=== PATIENT | female | born 1955 | race Caucasian/White ===

== ENCOUNTER → 2024-03-18 08:01 | Outpatient (REF) | payer OTHER, SELFPAY | LOC: WDC 08:01 | PROVIDERS: ATTENDING PHYSICIAN Obstetrics & Gynecology Gynecology; FAMILY PHYSICIAN Family Medicine | DX: Z12.31 Encounter for screening mammogram for malignant neoplasm of breast (principal) | CPT/HCPCS: 77063; 77067 ==

== ENCOUNTER → 2024-05-19 06:33 | Day surgery (SDC) | payer OTHER, SELFPAY | LOC: GI 06:33 | PROVIDERS: ATTENDING PHYSICIAN Internal Medicine | DX: Z12.11 Encounter for screening for malignant neoplasm of colon (principal); K64.8 Other hemorrhoids; K57.30 Diverticulosis of large intestine without perforation or abscess without bleeding; D12.0 Benign neoplasm of cecum | CPT/HCPCS: 45385; 45380; 88305 ==

== ENCOUNTER → 2025-01-28 07:47 | Outpatient (REF) | payer OTHER, SELFPAY | LOC: RAD 07:47 | PROVIDERS: ATTENDING PHYSICIAN Physician Assistant Medical | DX: R14.0 Abdominal distension (gaseous) (principal); R19.4 Change in bowel habit | CPT/HCPCS: 74177; Q9967 ==

== ENCOUNTER → 2025-03-01 09:41 | Outpatient (REF) | payer OTHER, SELFPAY | LOC: EMG 09:41 | PROVIDERS: ATTENDING PHYSICIAN Student in an Organized Health Care Education/Training Program; FAMILY PHYSICIAN Family Medicine | DX: R20.0 Anesthesia of skin (principal) | CPT/HCPCS: 95886; 95909 ==

== ENCOUNTER → 2025-03-20 07:12 | Outpatient (REF) | payer OTHER, SELFPAY | LOC: WDC 07:12 | PROVIDERS: ATTENDING PHYSICIAN Obstetrics & Gynecology Gynecology; FAMILY PHYSICIAN Family Medicine | DX: Z12.31 Encounter for screening mammogram for malignant neoplasm of breast (principal) | CPT/HCPCS: 77063; 77067 ==

== ENCOUNTER → 2025-03-22 12:43 | Outpatient (REF) | payer OTHER, SELFPAY | LOC: RAD 12:43 | PROVIDERS: ATTENDING PHYSICIAN Obstetrics & Gynecology Gynecology; FAMILY PHYSICIAN Family Medicine | DX: M81.0 Age-related osteoporosis without current pathological fracture (principal) | CPT/HCPCS: 77080 ==

== ENCOUNTER 2025-07-21 22:43 | Emergency (ER) | payer OTHER, SELFPAY ==
[2025-07-21 22:46] VITALS: BP 107/59
[2025-07-21 23:05] LABS: Hematocrit 39.0 % (37.0-47.0); Hemoglobin 13.4 g/dL (12.0-16.0); Mean Corp Hgb Conc. 34.4 g/dL (33.0-37.0); Mean Corpuscular Volume 90.3 fL (81.0-99.0); Nucleated Red Blood Cells % 0 %; Platelet Count 249 10^3/uL (130-400); Red Cell Dist. Width 13.8 % (11.5-14.5)
[2025-07-21 23:28] LABS: ALT (SGPT) 29 U/L (0-35); AST (SGOT) 26 U/L (14-36); Albumin 4.4 g/dl (3.5-5.0); Alkaline Phosphatase 60 U/L (38-126); Blood Urea Nitrogen 21 mg/dl (7-17); Calcium 9.7 mg/dl (8.4-10.2); Carbon Dioxide 31 mmol/L (22-30); Chloride 101 mmol/L (98-107); Glucose 118 mg/dl (70-99); Potassium 4.7 mmol/L (3.5-5.1); Sodium 135 mmol/L (135-145); Total Protein 6.7 g/dl (6.3-8.2); eGFR > 60.00
[2025-07-21 23:40] LABS: Troponin I < 0.012 ng/ml
[2025-07-21 23:53] VITALS: BP 101/50
[2025-07-21 23:54] VITALS: BMI 21.0
[2025-07-22] VITALS: BP 105/63
[2025-07-22] MEDS: MAALOX 30 ML PO
[2025-07-22 01:00] VITALS: BP 93/52
[2025-07-22 02:00] VITALS: BP 94/54
[2025-07-22 02:46] LABS: Troponin I < 0.012 ng/ml
[2025-07-22 03:00] VITALS: BP 101/70
--- NOTE | 2025-07-22 03:17 | ED.GENMED ---
History of Present Illness
General
Chief Complaint: Chest Pain
Source: patient and spouse
Time Seen by Provider: 07/21/25 23:35
History of Present Illness
History of Present Illness:
Note:
CHIEF COMPLAINT(S)
Fatigue, chest pressure, and episodes of sweating.
HISTORY OF PRESENT ILLNESS
The patient is a 70-year-old female presenting with complaints of extreme fatigue lasting for about a week. The patient reports that the fatigue began around the time she started taking Prednisone. She describes the fatigue as feeling and noted
episodes of sweating throughout the day. In the evening, she experienced a sensation of indigestion and pressure in the chest, which began around 9 PM. The chest pressure is described as a 'light' and not severe, but persistent. Since its onset, the
pressure has remained, sometimes improving slightly and sometimes worsening, but never fully resolving. She denies shortness of breath and does not recall experiencing a similar sensation in the past, except for an unrelated incident years ago where
no cardiac issues were found. She denies any recent fevers, tick bites, or other illnesses.
PAST MEDICAL AND SURGICAL HISTORY
The patient does not have a history of high blood pressure or diabetes. Her blood pressure is typically on the lower end of normal, recently recorded at 120/70 mmHg.
ADDITIONAL HISTORY OBTAINED FROM SOURCES OTHER THAN THE PATIENT
No additional sources were identified during the conversation.
CHRONIC MEDICAL CONDITIONS SIGNIFICANTLY AFFECTING CARE
The patient has postherpetic neuralgia following a shingles infection, for which she has tried various medications. Currently, she takes Prednisone but experiences significant fatigue.
PLAN
The medical plan includes obtaining a chest X-ray and monitoring the patient with serial cardiac enzyme testing and electrocardiograms to rule out myocardial infarction. The patients response to Maalox will be evaluated to determine if
gastrointestinal causes like steroid-induced gastritis due to Prednisone could be contributing to the symptoms. The patient will also be placed on a monitor for further observation.
DIFFERENTIAL DIAGNOSIS
The Differential Diagnosis includes, in no particular order and is not limited to:
1. Myocardial infarction
2. Angina pectoris
3. Gastroesophageal reflux disease (GERD)
4. Peptic ulcer disease
5. Pericarditis
6. Costochondritis
7. Atypical pneumonia
8. Anxiety/panic disorder
9. Lyme disease (considered due to fatigue and sweats)
10. Steroid-induced gastritis
PHYSICAL EXAM
General: Alert, no acute distress.
Skin: Warm, dry.
Head: Normocephalic, atraumatic.
Neck: Supple, trachea midline.
Eye, Ears, Nose, Mouth, and Throat: Oral mucosa moist.
Cardiovascular: Normal peripheral perfusion, Rate noted at 50 bpm on exam, No edema.
Respiratory: Respirations are non-labored, Lungs are clear.
Gastrointestinal: Abdomen nondistended, non-tender.
Back: Normal range of motion, Normal alignment.
Musculoskeletal: Normal range of motion, normal strength.
Neurological: Alert and oriented to person, place, time, and situation, No focal neurological deficit observed.
Psychiatric: Cooperative, appropriate mood & affect.
EKG
My independent EKG interpretation is:
- Time of EKG: Not specified
- Rhythm: Sinus bradycardia
- Heart Rate: 50 bpm
- Notable Intervals: Intervals otherwise normal
- [place]: Not specified
- Abnormalities Observed: Occasional premature atrial complexes
- ST Segment Changes: No
- T Wave Inversions: Not specified
Disposition:
SUMMARY OF ENCOUNTER
The patient is a 70-year-old female who presented to the emergency department with symptoms of extreme fatigue, chest pressure, and episodes of sweating. These symptoms began approximately one week ago when she started taking prednisone for
postherpetic neuralgia. The fatigue is described as extreme, and the chest pressure was noted consistently throughout the day, particularly in the evenings. A detailed workup was performed to rule out cardiac causes. Electrocardiograms revealed
sinus bradycardia but no signs of ischemia. Two serial troponin tests were performed and returned negative, suggesting no acute myocardial infarction. The chest X-ray was obtained as part of the workup. The patients clinical stability led to the
decision for outpatient follow-up. Patient will be referred to the cardiology follow-up hotline
DISPOSITION
Discharge
ASSESSMENT
The symptoms are likely due to side effects of prednisone, specifically, fatigue and possible gastritis contributing to the indigestion and chest pressure. The absence of ischemic changes and negative troponin tests make a cardiac etiology less
likely.
PLAN
The patient will have a follow-up appointment with cardiology on an outpatient basis to further evaluate her cardiac health and monitor her symptoms.
INDEPENDENT REVIEW OF LABS AND INTERPRETATION OF TESTS
- My independent review of the CBC is normal.
- My independent review of the BMP is otherwise normal.
- My independent review of the EKG indicated sinus bradycardia with no ischemia.
- My independent review of the troponin tests shows they were negative times two.
- My independent interpretation of the chest X-ray is pending radiologist confirmation with no significant acute findings noted.
FOLLOW-UP INSTRUCTIONS
Please call the office immediately to schedule a follow-up visit with cardiology.
MEDICAL DECISION MAKING
- Number and Complexity of Problems Addressed: Chronic conditions affecting care include postherpetic neuralgia and possible steroid-induced gastritis. Differential diagnosis included myocardial infarction, angina pectoris, gastroesophageal reflux
disease, peptic ulcer disease, pericarditis, costochondritis, atypical pneumonia, anxiety/panic disorder, Lyme disease, and steroid-induced gastritis.
- Data:
Category 1
- My independent review of the EKG, BMP, CBC, troponin tests, and chest X-ray.
- Risk:
Prescription medication management entails monitoring prednisone for side effects.
DIAGNOSIS
- Fatigue due to prednisone use (ICD-10: R53.82)
- Chest pressure possibly due to steroid-induced gastritis (ICD-10: K29.40)
Past History
Past History
ED Past Medical History: Other (Overactive bladder)
ED Past Surgical History: Orthopedic and Tonsilectomy
Social History
Tobacco: Non-smoker
Alcohol: None
Personal:
Living: with family
Employment: Retired
Family History
Family History: Other (Noncontributory)
Phy Exam
Physical Exam
Physical Exam:
.
Scores
Heart Score for Chest Pain Patients
STEMI patient?: No
History: Slightly or Non-Suspicious
ECG: Normal
Age: >/= 65 years
Risk Factors: 1 or 2 Risk Factors
Troponin: </= Normal Limit
Heart Score for Chest Pain Patients: 3
Heart Score Risk: 2.5% MACE over next 6 weeks
Course
Orders/Labs/Results
Orders:
Orders
07/21/25 22:45
EKG [Electrocardiogram (*1)] Urgent
Reason for Study: Chest Pain
EKG- Treatment ONCE
07/21/25 22:58
CBC/With Diff [Complete Blood Count/With Diff] Urgent
CMP [Comprehensive Metabolic Panel] Urgent
Troponin I Urgent
07/21/25 23:51
Mag Hydrox/Al Hydrox/Simeth [Maalox] 30 ml PO NOW STA
07/22/25 00:20
CR Chest - 2 Views Urgent
Reason For Exam: cp
07/22/25 01:54
Troponin I Urgent
Abnormal Lab Results
07/21/25
22:58
Neutrophils % 78.0 H %
(42.2-75.2)
Lymphocytes % 14.0 L %
(20.5-51.1)
Carbon Dioxide 31 H mmol/L
(22-30)
BUN 21 H mg/dl
(7-17)
Glucose 118 H mg/dl
(70-99)
07/21/25 22:58
07/21/25 22:58
Vital Signs
Initial and Last Documented VS:
Initial Vital Signs
Temp Pulse Resp BP Pulse Ox
97.6 F 57 15 107/59 99
07/21/25 22:46 07/21/25 22:46 07/21/25 22:46 07/21/25 22:46 07/21/25 22:46
Last Documented Vital Signs
Temp Pulse Resp BP Pulse Ox
97.6 F 53 15 105/63 98
07/21/25 22:46 07/22/25 00:15 07/22/25 00:15 07/22/25 00:00 07/22/25 00:15
*Pulse Oximetry
SaO2: 98
Oxygen Mode of Delivery: Room air
Patient hypoxic: no
*Critical Care Note
Total Time (30-74mins, 75-104mins- exclusive of procedures): Not Applicable
ED Attending Note
-
Portions of this chart may have been created with voice recognition software.� Occasional wrong word or��sound alike� substitutions may have occurred due to the inherent limitations of voice recognition software.
Discharge Plan
Departure
Patient Disposition: Home (Routine Discharge)
Date of Disposition: 07/22/25
Time of Disposition: 03:17
Patient with high blood pressure during this ER visit?: No
Discharge Problem:
Chest pain
Instructions: Chest Pain CBC Follow Up
Referrals:
Gil Leggett MD [Family Provider, [facility]]
Activity Restrictions/Additional Instructions:
Please take 81 mg of aspirin a day. Please avoid strenuous or exertional activity until cleared by cardiology. Please see cardiology in the next 48 hours for reevaluation. Return immediately for worsening pain, shortness breath, palpitations,
sweating, nausea, weakness of any kind, numbness, tingling or any other concerns.
Cardiology has been notified and a follow up appointment has been requested. Someone will call you on the next business day to schedule a follow up appointment.
Interventions
Interventions:
*Risk Screen - Suicide Last Done: 07/21/25 22:46
*General Assessment Last Done: 07/21/25 22:46
*Neglect/Abuse Screening Last Done: 07/21/25 22:46
*ED- Fall Risk Assessment Last Done: 07/21/25 23:54
*ED COVID-19 Vaccine History Last Done: 07/21/25 23:54
ED- Cardiac Assessment Last Done: 07/21/25 23:54
Discharge Date and Time
Print Language: BRITISH
== END 2025-07-22 03:42 | disposition home or self-care (01) ==
LOC: EMR 22:43
PROVIDERS: EMERGENCY PHYSICIAN Emergency Medicine; FAMILY PHYSICIAN Family Medicine
DX: R07.9 Chest pain, unspecified (principal); R00.1 Bradycardia, unspecified; B02.29 Other postherpetic nervous system involvement; N32.81 Overactive bladder
CPT/HCPCS: 99284; 71046; 80053; 84484; 85025; 93005

== ENCOUNTER → 2025-07-23 08:06 | Outpatient (REF) | payer OTHER, SELFPAY | LOC: HWRCS 08:06 | PROVIDERS: ATTENDING PHYSICIAN Student in an Organized Health Care Education/Training Program; FAMILY PHYSICIAN Family Medicine | DX: R07.89 Other chest pain (principal) | CPT/HCPCS: 93306 ==

== ENCOUNTER → 2025-08-16 13:21 | Outpatient (REF) | payer OTHER, SELFPAY | LOC: RCS 13:21 | PROVIDERS: ATTENDING PHYSICIAN Student in an Organized Health Care Education/Training Program; FAMILY PHYSICIAN Physician Assistant Medical | DX: R07.89 Other chest pain (principal) | CPT/HCPCS: 93017 ==

== ENCOUNTER → 2025-10-28 09:45 | Outpatient (REF) | payer OTHER, SELFPAY | LOC: DHSLP 09:45 | PROVIDERS: ATTENDING PHYSICIAN Student in an Organized Health Care Education/Training Program; FAMILY PHYSICIAN Physician Assistant Medical | DX: G47.33 Obstructive sleep apnea (adult) (pediatric) (principal); G47.61 Periodic limb movement disorder | CPT/HCPCS: 95810 ==